=== PATIENT | male | born 1965 | race Caucasian/White ===

== ENCOUNTER 2021-06-29 11:02 | Emergency (ER) | payer BC, SELFPAY ==
--- NOTE | ~2021-06-29 | XR_ITS ---
XR chest 2V DATE: 06/29/2021 11:31 INDICATION: Cough. Bilateral crackles. TECHNIQUE: 2 views COMPARISON: None FINDINGS: Left-sided pacemaker with leads overlying right atrium, right ventricle and coronary sinus. Cardiomegaly. No hilar or mediastinal enlargement. There is patchy infiltrate in the right lower lung. The lungs otherwise appear clear. No pleural effu margarita is noted. No pneumothorax. IMPRESSION: Patchy infiltrate, right lower lung Cardiomegaly Triple lead pacemaker Reviewed, dictated and finalized at location A. OLATE [facility]KER
[2021-06-29 11:10] VITALS: BP 125/74; PULSE 64; RESP 20; TEMP 36.6; O2SAT 99
--- NOTE | 2021-06-29 11:29 | ED.URI ---
HPI - URI/Sore Throat General Chief Complaint: Upper Respiratory Infection Stated Complaint: runny nose cough Time Seen by Provider: 06/29/21 11:30 Source: patient and family History of Present Illness HPI Narrative: Patient presents with a loose congested cough for the last 5 days. Patient is a 2 pack-a-day history smoker for the last 40 years. Patient states he called his primary care provider 1 days ago and was prescribed Levaquin for his symptoms. Patient presents to express care because he feels that his symptoms are not improving with the antibiotic. No shortness of breath and no pain. MD elicited complaint: cough Related Data Home Medications Medication Instructions Recorded Confirmed albuterol sulfate 2 inh INHALATION Q4-6H PRN 06/29/21 06/29/21 fluticasone furoate-vilanterol 1 inh INHALATION BID 06/29/21 06/29/21 [Breo Ellipta] hydroxyzine HCl 25 mg PO QID 06/29/21 06/29/21 levofloxacin 500 mg PO DAILY 06/29/21 06/29/21 methylprednisolone See Rx Instructions .ROUTE .COMPLEX 06/29/21 06/29/21 potassium chloride 10 meq PO BID 06/29/21 06/29/21 Allergies Allergy/AdvReac Type Severity Reaction Status Date / Time No Known Allergies Allergy Verified 06/29/21 11:38 Review of Systems Review of Systems: CONSTITUTIONAL: Denies chills, or sweats. Reports fever and generalized body aches EYES: Denies visual changes, redness, or discharge. ENT: Denies otalgia. Reports nasal congestion runny nose and sore throat CARDIOVASCULAR: Denies chest pain, palpitations, or edema. RESPIRATORY: Denies dyspnea. Reports occasional cough GASTROINTESTINAL: Denies abdominal pain, nausea, vomiting, or diarrhea. GENITOURINARY: Denies dysuria or hematuria. SKIN: Denies rash or itching. MUSCULOSKELETAL: Denies back pain, joint pain, or myalgia. Reports generalized body aches NEUROLOGIC: Denies headache, numbness, or weakness. PSYCHIATRIC: Denies anxiety or depression. [facility] Family History Family History (System 12/03/19 @ 12:32 by Nano Calderon) Other Cerebrovascular accident Diabetes mellitus Family history of elevated blood lipids Family history of obesity Family history of osteoarthritis Hypertension Social History Social History (System 12/03/19 @ 12:32 by Nano Calderon) Second hand tobacco smoke exposure: Yes Smoking end date: 06/09/09 Alcohol intake: current Comments At time of signature, agree with nursing past medical, surgical, social and family history. There is no relevant family history pertinent to the presenting complaint Exam Narrative: The patient is a well-developed, well-nourished in no acute distress. SKIN: Skin is warm and dry without erythema, swelling or exudate. There is good turgor. No tenting. HEAD: Atraumatic. Normocephalic. No temporal or scalp tenderness. EYES: Moist and bright. Sclera and conjunctivae normal. No discharge. PERRLA. Extraocular motions intact. Gross visual acuity intact. EARS: Pinna is normal shape and contour. Clear external auditory canals. TM pearly montero with good cone of light, no erythema or suppuration. Bilateral cerumen noted no gross hearing deficit. NOSE: pink, moist mucosa with good air movement. Clear rhinorrhea without nasal flaring. Septum midline. Mouth: moist mucous membranes. THROAT; mild erythema noted to posterior oropharynx with moderate postnasal drainage. Without exudate or ulceration.. Uvula midline. Normal movement of soft palate. NECK: Supple and nontender with full range of motion without discomfort. No meningeal signs. LUNGS: Equal and bilateral breath sounds without wheezes, rales or rhonchi. CHEST: The chest wall is without retractions or use of accessory muscles. HEART: Has a regular rate and rhythm without murmur, gallops, click or rub. ABDOMEN: Soft, nontender with positive active bowel sounds. No rebound tenderness. EXTREMITIES: Without cyanosis, clubbing or edema. Equal 2+ distal pulses and 2 second capillary refill noted
== END 2021-06-29 11:48 | disposition home or self-care (01) ==
PROVIDERS: Emergency Provider Nurse Practitioner Family; PCP Family Medicine
DX: J18.9 Pneumonia, unspecified organism (principal); Z20.822 Contact with and (suspected) exposure to COVID-19; F17.200 Nicotine dependence, unspecified, uncomplicated
CPT/HCPCS: 71046; 87426; 99213; C9803; G0463